=== PATIENT | female | born 1930 | race Caucasian/White ===

== ENCOUNTER 2017-01-05 13:00 | Inpatient (IN) | payer MEDICARE, OTHER ==
--- NOTE | ~2017-01-05 | HP ---
Unit #: [id number] #: [id number] Patient: RAKESH STEWART [id number] [address] [address] [id number] I MR#: [id number] NAME: RAKESH STEWART ROOM: 463 Age: 86 Sex: F Admission Date: 01/05/2017 : 1930 Attending Physician: Phil Loo M.D. Primary Care Physician: Michael Lama M.D. HISTORY AND PHYSICAL REASON FOR ADMISSION Right femur fracture. HISTORY OF PRESENT ILLNESS The patient is an 84-year-old long-term resident at [facility] with underlying past history of dementia likely mild to moderate with behavioral disturbances who apparently was trying to get out of her bed last night in the hospital. She fell awkwardly onto her right side. Portable x-ray was done at that time at the custodial which showed evidence of impossible fracture and, therefore, she was transferred to [facility] for further evaluation. Initial x-ray here also raised that possibility. The patient has already had a CT scan, which is currently pending, to ascertain the area in question for possible occult right femur fracture and/or possible underlying pelvic fracture as well. PAST MEDICAL HISTORY Spinal stenosis, chronic diarrhea, lactose intolerance, dysphagia, intractable back pain, GERD, depression, TIA, anemia, Alzheimer's dementia with behavioral disturbances, impaired cognition, restless leg, chronic pain, hyperlipidemia, insomnia, major depressive disorder, anxiety, overactive bladder, history of recurrent falls, chronic dysphagia. SOCIAL HISTORY Resides at a custodial. No alcohol use. No tobacco use. No illicit drug use. FAMILY HISTORY Reviewed, noncontributory, nonpertinent. ALLERGIES Codeine, erythromycin, Feldene, sulfa, iodine. CURRENT MEDICATIONS 1. Coumadin. 2. Omeprazole. 3. Remeron. 4. Ditropan. 5. Paxil. 6. Aricept. 7. Zyrtec. 8. [place]. 9. Loperamide. 10. Milk of magnesia. Unit #: [id number] #: [id number] Patient: RAKESH STEWART 11. Zofran. 12. Trazodone. 13. Zyrtec. 14. Aspercreme. 15. Barrier creams as directed. REVIEW OF SYSTEMS Please see HPI. Limited secondary to patient's current chronic conditions. PHYSICAL EXAMINATION GENERAL APPEARANCE: An 84-year-old female in no acute distress. VITAL SIGNS: Temperature 98.7. Pulse 83. Respiratory rate 20. Blood pressure 112/90. HEENT: Head exam: Atraumatic. Ear exam: Tympanic membranes do not reveal any erythema or injection. NECK: Supple. CARDIOVASCULAR: S1, S2 without murmur. RESPIRATORY: Coarse breath sounds noted. GASTROINTESTINAL/ABDOMEN: Nontender, nondistended. LOWER EXTREMITIES: Contracted stated, decreased range of motion secondary to discomfort and/or pain. NEUROLOGIC: Patient alert and oriented times zero. DIAGNOSTIC STUDIES LABORATORY: BMP showing a potassium of 3.1, creatinine 0.7. INR 1.2. CBC: Hemoglobin 11.5, WBC count 13.1. IMAGING: X-ray performed at outside facility showing acute supracondylar femur fracture with knee arthroplasty remaining intact. INITIAL ADMISSION DIAGNOSES 1. Right femur fracture. 2. Status post fall. 3. Behavioral disturbance secondary to mild to moderate dementia. 4. Alzheimer dementia. 5. Chronic pain syndrome. 6. Intractable back pain. 7. Neuropathy. 8. GERD. 9. Chronic anticoagulation with Coumadin, I believe, secondary to TIA history. 10. Anxiety/depression. PLAN Admission med/surg floor. 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 She will also be taken off of some of her sedative medications including Neurontin as well as Fentanyl and will be converted into short-acting pain medications. Miscellaneous medications including Zyrtec and others will also be discontinued. We will try to minimize her overall medication list, as certainly polypharmacy may be contributing to some of her symptoms. Plans have been reviewed with the patient's daughter who was present at bedside. Orthopaedic Services have been consulted. CT scan is currently pending. Further plans and/or disposition per Orthopaedic Services, may require Unit #: [id number] #: [id number] Patient: RAKESH STEWART intraoperative management to which we will continue to follow both preoperative as well as postoperatively. Plans have been reviewed with patient's daughter. Overall, long-term prognosis of this patient currently is guarded. Dictated by Donald Magallanes/mark anthony TD: 01/06/2017 19:13 JOB #: [id number] HISTORY AND PHYSICAL Page 1 of 1 X Phil Loo MD X HISTORY AND PHYSICAL
--- NOTE | ~2017-01-05 | CR71 ---
[facility] A Service of [facility] & [facility] RADIOLOGY TEXT RESULTS PATIENT: RAKESH STEWART LOCATION: [place] [address] : [birth year] UNIT #: [id number] AGE: [address]: Phil Loo MD SEX: F ORDER DR: [id number] [facility] [address] [place], [place] [address] [id number] I MR#: [id number] Acc #: [id number] NAME: RAKESH STEWART : 1930 SEX: F STUDY DATE/TIME: 01/05/2017 12:45 UNIT: CEDOF ROOM: 76874 STUDY DESCRIPTION: CR Chest Single View Attending Physician: Phil Loo M.D. Ordering Physician: Ed Carl Ramey M.D. Primary Care Physician: Michael Lama M.D. MEDICAL IMAGING REPORT This report is preliminary unless electronic signature is present EXAM Chest x-ray. DATE OF EXAM 01/05/2017 at 12:45. INDICATIONS Shortness of air since last night after a fall. FINDINGS AP portable chest is compared with 12/01/2008. There is elevation of the right hemidiaphragm with some right base atelectasis. Heart size normal. The lungs are otherwise clear, and there is no pneumothorax. There are old-appearing left posterior rib fractures. IMPRESSION Interval development of an elevated right hemidiaphragm with some mild right base atelectasis. No other evidence for active disease. Dictated by... Alfie Conde Jr., M.D. THIS IS AN ELECTRONICALLY VERIFIED REPORT Alfie Conde Jr., M.D. at 01/08/2017 8:00 AM CARLOS/melanie TD: 01/05/2017 15:40 JOB #: [id number] MEDICAL IMAGING REPORT Page 1 of 1 COPY
--- NOTE | ~2017-01-05 | CR151 ---
[facility] A Service of [facility] & [facility] RADIOLOGY TEXT RESULTS PATIENT: RAKESH STEWART LOCATION: [facility] 463-01 : [birth year] UNIT #: [id number] AGE: [address]: Phil Loo MD SEX: F ORDER DR: [id number] [facility] [address] [place], [place] [address] [id number] I MR#: [id number] Acc #: [id number] NAME: RAKESH STEWART : 1930 SEX: F STUDY DATE/TIME: 01/05/2017 12:48 UNIT: [facility] ROOM: [facility] STUDY DESCRIPTION: CR Hip Min 2 Views Rt Attending Physician: Phil Loo M.D. Ordering Physician: Ed Carl Ramey M.D. Primary Care Physician: Michael Lama M.D. MEDICAL IMAGING REPORT This report is preliminary unless electronic signature is present EXAM Right hip and pelvis. DATE OF EXAM 01/05/2017 at 1248 hours. INDICATIONS Right hip pain after fall last night. FINDINGS AP pelvis was obtained in addition to a frog-leg views of the right hip. Patient is osteopenic. There is degenerative disease in the lower lumbar spine. There is some osteoarthritic joint space narrowing in the hips. No fracture or malalignment is identified however. IMPRESSION Osteopenia and degenerative disease. No acute fracture or malalignment in the pelvis or right hip. Dictated by... Alfie Conde Jr., M.D. THIS IS AN ELECTRONICALLY VERIFIED REPORT Alfie Conde Jr., M.D. at 01/08/2017 8:00 AM CARLOS/melanie TD: 01/05/2017 15:54 JOB #: [id number] MEDICAL IMAGING REPORT Page 1 of 1 COPY
--- NOTE | ~2017-01-05 | OR ---
Unit #: [id number] #: [id number] Patient: RAKESH STEWART [id number] [address] [address] [id number] I MR#: [id number] NAME: RAKESH STEWART ROOM: 463 Date of Procedure: 01/06/2017 Admission Date: 01/05/2017 Surgeon: Henry Lozano M.D. : 1930 Attending Physician: Phil Loo M.D. Primary Care Physician: Michael Lama M.D. OPERATIVE REPORT PREOPERATIVE DIAGNOSIS Right closed distal femur periprosthetic fracture. POSTOPERATIVE DIAGNOSIS Right closed distal femur periprosthetic fracture. PROCEDURE PERFORMED Open reduction and internal fixation, right distal femur periprosthetic fracture. 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 ANESTHESIA General with LMA. COMPLICATIONS None. SPECIMENS None. DRAINS None. SURGICAL IMPLANTS Harleen distal femur locking plate. INDICATION FOR PROCEDURE Ms. Stewart is an 86-year-old female with dementia, who was at a fpc, who apparently fell onto her right knee resulting in a closed displaced periprosthetic distal femur fracture. She apparently had a right total knee arthroplasty performed roughly 15 years ago. Based on the type of fracture, limited mobility, and the patient's pain, it was felt she would benefit from stabilization of fracture. Risks, benefits, and alternatives of surgery were discussed with the patient's family. Informed consent was obtained. They wished to proceed with this procedure to aid immobilization and reduced pain. Risks include, but not limited to, infection, bleeding, nerve injury, blood clots, risks associated with anesthesia, need for further surgery, and possibly . DESCRIPTION OF PROCEDURE Unit #: [id number] #: [id number] Patient: RAKESH STEWART On 01/06/2017, the patient was seen in preoperative holding area, where her surgical site was marked. Preoperative antibiotics were received. H and P and consent updated. The patient was taken to the operating room and provided general anesthesia. Right lower extremity was prepped and draped in typical sterile fashion. Time-out performed confirming the correct surgical site and procedure. At this point, the right leg was placed on a radiolucent triangle. A longitudinal lateral incision was made over the distal femur. Incision was taken down through the skin and subcutaneous tissues. IT band was split in line with the femur. The vastus lateralis was elevated off the posterior septum. Fracture site identified. It was significantly extended. The distal portion was comminuted and the bone was extremely thin. The extension was neutralized and K-wires were placed to hold it in position. The plate was placed and K-wire in place. The plate was checked on both AP and lateral planes noted to be in appropriate position distally. Screws were then placed locking plate to the distal segment. Next, the plate and the distal segment reduced the shaft by placing 4 bicortical screws in the shaft. Locking caps were placed in all of the screw holes to prevent cut out. At this point, final AP and lateral fluoroscopic images were taken confirming appropriate reduction of fracture and placement of hardware. The knee had full extension and flexion. The wound was then thoroughly irrigated. Hemostasis noted. IT band was closed with 0 Vicryl suture followed by 2-0 Vicryl for subcutaneous tissues and oscar for skin. Xeroform, 4x4s, ABD pad, cast padding, and Werner bandage were placed followed by a knee immobilizer. The patient was subsequently awakened from general anesthesia in stable condition and taken to PACU postoperatively. POSTOPERATIVE PLAN The patient will be returned to her hospital room. She will be nonweightbearing on the right lower extremity and help for transfers only. She will be on Lovenox for approximately 10 days for DVT prophylaxis and have SCDs. She will be on standard 24-hour antibiotic protocol. No complications were encountered during the surgical procedure. Dictated by... Donald El/rosenda TD: 01/07/2017 00:42 JOB #: [id number] OPERATIVE REPORT Page 1 of 1 X X PROCEDURE OPERATIVE NOTE
--- NOTE | ~2017-01-05 | CR170 ---
[facility] A Service [facility] RADIOLOGY TEXT RESULTS PATIENT: RAKESH STEWART LOCATION: [place] [address] : [birth year] UNIT #: [id number] AGE: [address]: Phil Loo MD SEX: F ORDER DR: [id number] [facility] [address] [facility] [place], [place] [address] [id number] I MR#: [id number] Acc #: [id number] NAME: RAKESH STEWART : 1930 SEX: F STUDY DATE/TIME: 01/06/2017 12:14 UNIT: [facility] ROOM: [facility] STUDY DESCRIPTION: CR Knee 2 Views Rt Attending Physician: Phil Loo M.D. Ordering Physician: Henry Lozano M.D. Primary Care Physician: Michael Lama M.D. MEDICAL IMAGING REPORT This report is preliminary unless electronic signature is present EXAM Right knee series INDICATIONS Intraoperative fluoroscopy for right knee surgery. TECHNIQUE Intraoperative fluoroscopy. Total fluoro time 2.5 minutes. 3 images are submitted. COMPARISON 01/05/2017. FINDINGS There has been side plate and screw fixation of the distal femoral fracture. The fracture still remains displaced, similar to the previous study. IMPRESSION Interval placement of side plate and screws along the distal femur. The component obscured by the right knee prosthesis is not well evaluated but the component of the fracture in the metaphysis remains displaced, similar to the prior. Dictated by... Antonio Mercedes M.D. THIS IS AN ELECTRONICALLY VERIFIED REPORT Antonio Mercedes M.D. at 01/07/2017 9:43 AM EED/pcl [facility] A Service [facility] RADIOLOGY TEXT RESULTS PATIENT: RAKESH STEWART LOCATION: [place] [address] : [birth year] UNIT #: [id number] AGE: [address]: Phil Loo MD SEX: F ORDER DR: TD: 01/06/2017 15:42 JOB #: [id number] MEDICAL IMAGING REPORT Page 1 of 1 COPY
--- NOTE | ~2017-01-05 | A ---
[facility] Nutrition Therapy DATE: 01/07/17 Patient: RAKESH Zac STEWART Physician: JAYCOB Address: [address] [place] [address] Room/Bed: [address] [place] [address], Zip: [place] [phone] Admit Date: 01/05/17 Date of : [birth year] Height: 5 8 Weight: 110 50 NUTRITIONAL ASSESSMENT: REASON: Consult and low BMI 86 yo female admitted for R femur fracture PMH: Spinal stenosis, chronic diarrhea, lactose intolerance, dysphagia, GERD, depression, dementia with behavioral disturbances, TIA, anxiety, HLD Anthropometrics: Ht: 5'8" Wt: 54.5 kg (120#) BMI: 18.3 IBW: 140#, 86% IBW Labs: BUN 28, Ca++ 8.0, GFR 40.3 Meds: K, Lipitor, Remeron, NaCl, Zofran, Lactaid I/O & Bowel function: 1745/475, last BM unknown Skin Integrity: Bruises (scattered) scar (abd), closed surgical incision (R hip), no edema noted Estimated Nutrition Needs: Increased d/t low BMI Assessment: Chart reviewed, events noted. Pt lives at residential and fell, resulting in a femur fracture. Pt underwent surgery yesterday (01/06). Per INSPECTOR REPAIRER SANDSTONE eval, pt on a pureed and thin liquid diet. Pt also has no added salt restriction. Pt was asleep and not appropriate for diet interview. RD collector of internal revenue talked to sitter in room. Per sitter, pt consumes ~50% of meals and thinks supplements would benefit pt. See recommendations below. Dx: Underweight RT poor intake AEB consuming ~50% of meals, 18.3 BMI, 86% IBW. Intervention: 1. Ensure TID 2. Pureed diet Monitoring, Evaluation and Goals: 1. PO intake; consume >75% of meals and supplements 2. Weight; prevent unintentional weight loss, promote gradual weight gain 3. Labs; WNL Recommendations: 1. Please order Ensure shakes TID w/ meals. [facility] Nutrition Therapy DATE: 01/07/17 Patient: RAKESH STEWART Physician: JAYCOB Address: [address] [place] [address] Room/Bed: [address] [place] [address], Zip: [place] [address] Admit Date: 01/05/17 Date of : [birth year] Height: 5 8 Weight: 110 50 2. If pt is consuming <50% of meals, consider d/c no salt added restriction. Pt is at a mild nutritional risk. RD will f/u per protocol. Respectfully, Divina Hurtado, End User Consultant Mackenzie Soler RD, LD Christal Rizzo MS, RD, LD [facility] Nutrition[facility] cc: client file
--- NOTE | ~2017-01-05 | EKG ---
PATIENT: RAKESH STEWART UNIT #: [id number] Ventricular Rate: 93 BPM Atrial Rate: 93 BPM P-R Interval: 134 ms QRS Duration: 108 ms Q-T Interval: 388 ms QTC Calculation(Bezet): 482 ms P Buchanan: 67 degrees Calculated R Buchanan: -32 degrees Calculated T Buchanan: 66 degrees Diagnosis Line: Normal sinus rhythm Diagnosis Line: Left axis deviation Diagnosis Line: Septal infarct , age undetermined Diagnosis Line: ST depression, consider subendocardial injury Diagnosis Line: Abnormal ECG Diagnosis Line: No previous ECGs available Diagnosis Line: Confirmed by MURRAY KAUFMAN MD ([id number]) on 01/05/2017 Diagnosis Line: 6:40:55 PM INTERPRETING MD: MANDEEP BRANNON
--- NOTE | ~2017-01-05 | DS ---
Unit #: [id number] #: [id number] Patient: RAKESH STEWART [id number] [address] [place], [place] [address] [id number] I MR#: [id number] NAME: RAKESH STEWART ROOM: 463 Age: 86 Sex: F Admission Date: 01/05/2017 : 1930 Discharge Date: 01/10/2017 Attending Physician: Phil Loo M.D. Primary Care Physician: Michael Lama M.D. DISCHARGE SUMMARY REASON FOR ADMISSION Status post fall in group home with resultant right distal femur fracture. HISTORY OF PRESENT ILLNESS/HOSPITAL COURSE Please see H and P for complete details. Initial part of hospital stay consistent with consultation being placed to orthopedic services. Patient underwent on January 06, 2017, performed by Dr. Lozano, an open reduction internal fixation of the right distal femur periprosthetic fracture. Postoperatively, there were no acute events. However, patient's hemoglobin did decrease to 6.7 from a baseline, I believe, closer to 9-10. She received 2 units of packed red blood cells. Her Lovenox was later discontinued. She was cared for by physical and occupational therapy. At the present time, she appears stable for transfer to a rehab facility and then with plans for back to long-term nursing care. At time of discharge, we are awaiting orthopedic recommendations but for now will place her on aspirin 325 mg x12 additional days for a total of two weeks. It was noted that the patient was on Coumadin prior to admission, was not entirely sure what the diagnosis for the Coumadin was for. I did approach the daughter, asked her, and discuss with her. She was not sure either. The patient did appear to be in normal sinus throughout her hospital course. Therefore, at time of discharge will discontinue her Coumadin altogether. Her [place] dosage has also been decreased to one tablet p.o. b.i.d. Her Duragesic patch will be continued. FINAL DIAGNOSES 1. Status post mechanical fall in group home with resultant right distal femur fracture. 2. Spinal stenosis. 3. Chronic diarrhea. 4. Lactose intolerance. 5. Chronic dysphagia, cleared by speech therapy this hospital admission. 6. Intractable back pain. 7. Gastroesophageal reflux disease. 8. Depression. 9. Transient ischemic attack history. 10. Anemia. 11. Alzheimer dementia. Unit #: [id number] #: [id number] Patient: RAKESH STEWART 12. Behavioral disturbance. 13. Impaired cognition. 14. Restless leg syndrome. 15. Chronic pain syndrome. 16. Hyperlipidemia. 17. Insomnia. 18. Major depressive disorder. 19. Anxiety. 20. Overactive bladder. 21. History of recurrent falls. 22. Failure to thrive. DISCHARGE MEDICATIONS 1. Zofran 4 mg p.o. q.4 p.r.n. 2. Maalox 30 mL p.o. b.i.d. p.r.n. 3. Flonase one to two squirts each nostril daily. 4. Depakote 250 mg p.o. q.6. 5. Remeron 15 mg p.o. nightly. 6. Paxil 10 mg p.o. daily. 7. Trazodone 25 mg p.o. nightly p.r.n. 8. Requip 0.25 mg p.o. nightly. 9. Milk of Magnesium 30 mL p.o. daily p.r.n. 10. Aricept 10 mg p.o. nightly. 11. Lactase probiotic daily. 12. Ditropan 5 mg p.o. nightly. 13. Pravachol 20 mg p.o. nightly. 14. Multivitamin daily. 15. Aspirin 325 mg p.o. daily x12 days. 16. Duragesic 75 mcg q.72 hours. 17. [place] 5/325 one tablet p.o. b.i.d. p.r.n. 18. Omeprazole 20 mg p.o. daily. 19. Klor-Con 10 mEq p.o. b.i.d. DISCHARGE CONDITION Stable. DISCHARGE DISPOSITION To rehab. Dictated by... Donald Magallanes TD: 01/10/2017 10:33 JOB #: [id number] Unit #: [id number] #: [id number] Patient: RAKESH STEWART DISCHARGE SUMMARY Page 1 of 1 X Phil Loo MD DISCHARGE SUMMARY
--- NOTE | ~2017-01-05 | CR173 ---
[facility] A Service of [facility] RADIOLOGY TEXT RESULTS PATIENT: RAKESH STEWART LOCATION: [facility] [place] [facility] 463-01 : [birth year] UNIT #: [id number] AGE: [address]: Phil Loo MD SEX: F ORDER DR: [id number] [facility] [address] [place], [place] [address] [id number] I MR#: [id number] Acc #: [id number] NAME: RAKESH STEWART. : 1930 SEX: F STUDY DATE/TIME: 01/05/2017 UNIT: [facility] [place] [facility] ROOM: [facility] STUDY DESCRIPTION: CR Knee 3 Views Rt Attending Physician: Phil Loo M.D. Ordering Physician: Ed Doctor [id number] [facility] Primary Care Physician: Michael Lama M.D. MEDICAL IMAGING REPORT This report is preliminary unless electronic signature is present EXAM Right knee 01/05 at 12:51 INDICATIONS Knee pain after a fall last night. FINDINGS 2 views of the right knee were obtained. Patient is status post total knee arthroplasty. There is a comminuted fracture of the distal femur involving the diaphysis and metaphysis, extending probably into the condyle. There is a lipohemarthrosis. The tibial plateau appears intact. IMPRESSION Comminuted distal femur fracture, as above, which extends behind the hardware. Patient is osteopenic. Dictated by... Alfie Conde Jr., M.D. THIS IS AN ELECTRONICALLY VERIFIED REPORT Alfie Conde Jr., M.D. at 01/08/2017 8:00 AM CARLOS/unique TD: 01/05/2017 15:52 JOB #: [id number] MEDICAL IMAGING REPORT Page 1 of 1 COPY
--- NOTE | ~2017-01-05 | CT71 ---
[facility] A Service of [facility] RADIOLOGY TEXT RESULTS PATIENT: RAKESH STEWART LOCATION: [place] [address] : [birth year] UNIT #: [id number] AGE: [address]: Phil Loo MD SEX: F ORDER DR: [id number] [facility] [address] [facility]. [place], [place] [address] [id number] I MR#: [id number] Acc #: [id number] NAME: RAKESH STEWART : 1930 SEX: F STUDY DATE/TIME: 01/05/2017 17:04 UNIT: [facility] ROOM: [facility] STUDY DESCRIPTION: CT Head Wo Contrast Attending Physician: Phil Loo M.D. Ordering Physician: Bear Ramey M.D. Primary Care Physician: Michael Lama M.D. MEDICAL IMAGING REPORT This report is preliminary unless electronic signature is present EXAM Noncontrast head CT. HISTORY Fell at longterm last night. States hit back of head, head pain. COMPARISON Head CT, 07/05/2010. TECHNIQUE NOTE: This CT exam was performed with one or more of the following radiation dose reduction techniques: automatic exposure control, adjustment of mA and/or kV according to patient size, and iterative reconstruction. FINDINGS Axial noncontrast imaging of the brain demonstrates generalized atrophy. There is decreased attenuation of the periventricular white matter most prominent overlying the anterior frontal regions most likely related to chronic microvascular disease. No mass, mass effect or midline shift. No hemorrhage or abnormal extraaxial fluid collections. Intracranial vascular calcifications noted. Skull base, mastoids and sinuses unremarkable. IMPRESSION No acute intracranial abnormality identified. Generalized atrophy with chronic microvascular ischemic changes. Dictated by.Tash. Tony Dumont M.D. THIS IS AN ELECTRONICALLY VERIFIED REPORT [facility] A Service of [facility] RADIOLOGY TEXT RESULTS PATIENT: RAKESH STEWART LOCATION: [place] [address] : [birth year] UNIT #: [id number] AGE: [address]: Phil Loo MD SEX: F ORDER DR: Tony Dumont M.D. at 01/05/2017 8:37 PM Jameson TD: 01/05/2017 20:06 JOB #: [id number] MEDICAL IMAGING REPORT Page 1 of 1 COPY
--- NOTE | ~2017-01-05 | CO ---
Unit #: [id number] #: [id number] Patient: BAILEY STEWART [id number] [address] [address] [id number] MR#: [id number] NAME: BAILEY STEWART ROOM: 463 Age: 86 Sex: F Admission Date: 01/05/2017 : 1930 Attending Physician: Phil Loo M.D. Primary Care Physician: Michael Lama M.D. Consultation Date: 01/06/2017 CONSULTATION REPORT REASON FOR CONSULTATION Right distal femur periprosthetic fracture. HISTORY OF PRESENT ILLNESS Bailey is an 86-year-old female with dementia who lives in a shelter. The patient apparently fell onto her right knee resulting in deformity and pain. She was brought to the emergency room where x-rays were taken. She was noted to have a comminuted distal femur fracture above her total knee arthroplasty. The patient was admitted to the Medical Service. She was noted to have pain in the knee. On exam today, she does have severe dementia. She does appear to have pain with motion of the leg. It does appear to be better with rest per her family. No significant prior problems with the knee other than the knee replacement. She does predominantly use a wheelchair to get around at the shelter. PAST MEDICAL HISTORY 1. History of heart failure. 2. Diffuse osteoarthritis. 3. Spinal stenosis. 4. Dementia. 5. Chronic pain. 6. Anxiety. PAST SURGICAL HISTORY 1. Gallbladder removal. 2. D and C. 3. Hysterectomy. 4. Laminectomy. 5. Bladder repair. 6. Bladder fulguration. 7. Sinus surgery. 8. Breast biopsy. 9. Appendectomy. 10. Cataract surgery. 11. Temporal artery biopsy. 12. Right total knee arthroplasty. SOCIAL HISTORY The patient lives in a shelter for the last three years. Her is . She has two children with her at the bedside today. No tobacco, alcohol or drug use. FAMILY HISTORY Noncontributory. Unit #: [id number] #: [id number] Patient: BAILEY STEWART ALLERGIES Sulfa, iodine and IV contrast. MEDICATIONS 1. Flonase. 2. Klor-Con. 3. Ativan. 4. Requip. 5. Lipitor. 6. Aricept. 7. Paxil. 8. Ditropan. 9. Remeron. 10. Lactaid. 11. Depakote. 12. Corrales. 13. Fentanyl patch. 14. Ativan. REVIEW OF SYSTEMS Unable to obtain due to patient not being alert or oriented. PHYSICAL EXAMINATION GENERAL APPEARANCE: The patient is in no acute distress. She is not alert or oriented or exam. VITAL SIGNS: Temperature 97.9 degrees Fahrenheit. Pulse 93. Respiratory rate 18. 97% oxygen saturation. Blood pressure 112/54. HEENT: Head is atraumatic, normocephalic. Extraocular movements intact. Mucous membranes are slightly dry. CERVICAL SPINE: Slightly kyphotic but she freely moves. No appreciable JVD. LUNGS: Breathing nonlabored. Chest rise symmetric. PULSE: Regular rate and rhythm. ABDOMEN: Soft, nontender, nondistended. EXTREMITIES: No clubbing, cyanosis or edema of the extremities. All extremities are warm and well perfused. A focused examination of the right lower extremity reveals knee immobilizer in place. There is some ecchymosis about the knee. There is tenderness to palpation. Limited motion of the right leg. Compartments are soft. SKIN: No appreciable skin lesions. DIAGNOSTIC STUDIES LABORATORY: BMP normal with glucose of 141. INR 1.2. WBC count 11.2, hemoglobin 10.8, platelets 234. IMAGING: X-rays reviewed of the right knee reveal a periprosthetic distal femur fracture above the knee arthroplasty. There is osteopenia noted. The implant appears to be not loose. IMPRESSION An 86-year-old female with dementia and a displaced right distal periprosthetic femur fracture. PLAN I had a long discussion with the patient's children regarding options to help with mobility and aid in pain control. The family elected to proceed with surgical stabilization of the fracture. We will plan for ORIF of the Unit #: [id number] #: [id number] Patient: BAILEY STEWART distal femur. Risks, benefits and alternatives discussed. Informed consent was obtained. Risks include but not limited to infection, bleeding, nerve injury, blood clot, risks associated with anesthesia, need for further surgery and possibly . All their questions were answered. We will proceed with surgery. Dictated by... Henry Lozano M.D. FELI/feli TD: 01/06/2017 12:41 JOB #: [id number] CONSULTATION REPORT Page 1 of 1 X X CONSULTATION REPORT
[2017-01-05 12:49] LABS: BASOPHIL% 0.2 % (0-2.5); EOSINOPHIL% 0.1 % (0.0-7.0); HEMATOCRIT 35.3 % (35.0-45.0); HEMOGLOBIN 11.5 gm/dL (12.0-16.0); LYMPHOCYTE% 7.3 % (17.0-45.0); MEAN CELL VOLUME 90.1 FL (83-96); MEAN CORPUSCULAR HEMOGLOBIN 29.3 PG (28-34); MEAN CORPUSCULAR HGB CONC 32.5 g/dL (30-36); MEAN PLATELET VOLUME 8.8 FL (6.5-11.5); MONOCYTE# 0.9 X10e3 (0-1.0); MONOCYTE% 6.9 % (3.0-12.0); NEUTROPHIL# 11.3 X10e3 (1.5-7.1); NEUTROPHIL% 85.5 % (40-75); PLATELET COUNT 245 X10e3 (140-420); RED BLOOD COUNT 3.91 X10e (3.90-5.30); RED CELL DISTRIBUTION WIDTH 14.6 % (11.0-15.5); WHITE BLOOD COUNT 13.1 X10e3 (4.0-10.5)
[2017-01-05 12:53] LABS: DIFF IND NO
[~2017-01-05 13:00] MED LIST: ALTACE PO; AMITRYPTYLINE PO; ARICEPT5 MG PO; BACLOFEN10 MG PO; ELMIRON100 MG PO; FEMHRT 0.5 MG/21 TAB PO; IBUPROFEN PO; KCL PO; LASIX PO; LOMOTIL TABLET1 TAB PO; NEURONTIN PO; NIFEREX-150 FOR1 CAP PO; NORCO 10/325 TA1 TAB PO; NORVASC PO; OCUVITE TABLET1 TAB PO; PAXIL PO; PLAVIX PO; PRAVACHOL PO; PRILOSEC PO; REQUIP1 MG PO; SKELAXIN PO
[2017-01-05 13:08] LABS: INR 1.2; PARTIAL THROMBOPLASTIN TIME 23.4 SECONDS (23.5-31.3); PROTHROMBIN TIME (PATIENT) 12.7 SECONDS (9.6-11.5)
[2017-01-05 13:19] LABS: BUN/CREATININE RATIO 17.14; CALCIUM SERUM 9.3 mg/dL (8.4-10.2); CREATININE SERUM 0.7 mg/dL (0.6-1.4); GLOM FILT RATE Estimated 77.4 mL/min (>60); POTASSIUM 3.1 mmol/L (3.5-5.1)
[2017-01-05] MEDS ORDERED: DAIRY DIGES3000 UNI1 PO (16:24)
[2017-01-05] MEDS ORDERED: DIVALPROEX SOD250 MG PO (16:25)
[2017-01-05] MEDS ORDERED: [UNRECOGNIZED DRUG - OTHER] PO (16:26)
[2017-01-05] MEDS ORDERED: FLONASE 0.05% N16 G1 (16:26)
[2017-01-05] MEDS ORDERED: MULTI-DAY PLUS1 EACH PO (16:27)
[2017-01-05] MEDS ORDERED: GABAPENTIN300 M2 PO (16:28)
[2017-01-05] MEDS ORDERED: BUMEX1 MG PO (16:28)
[2017-01-05] MEDS ORDERED: HYDROCODON-ACE1 EAC7 PO (16:29)
[2017-01-05] MEDS ORDERED: KLOR-CON SPRIN10 MEQ PO (16:29)
[2017-01-05] MEDS ORDERED: REFRESH CLASSI1 EACH OU (16:30)
[2017-01-05] MEDS ORDERED: JANTOVEN2 MG PO (16:30)
[2017-01-05] MEDS ORDERED: WARFARIN SODIUM6 M1 PO (16:31)
[2017-01-05] MEDS ORDERED: REMERON15 MG PO (16:31)
[2017-01-05] MEDS ORDERED: OMEPRAZOLE20 M2 PO (16:31)
[2017-01-05] MEDS ORDERED: DONEPEZIL HCL10 MG PO (16:32)
[2017-01-05] MEDS ORDERED: PAROXETINE HCL10 MG PO (16:32)
[2017-01-05] MEDS ORDERED: DITROPAN5 MG PO (16:32)
[2017-01-05] MEDS ORDERED: PRAVACHOL20 MG PO (16:33)
[2017-01-05] MEDS ORDERED: ZYRTEC5 M2 PO (16:35)
[2017-01-05] MEDS ORDERED: CEPACOL SORE T1 EAC3 MM (16:35)
[2017-01-05] MEDS ORDERED: FENTANYL PATCH TD (16:35)
[2017-01-05] MEDS ORDERED: LORTAB 5-325 M1 EACH PO (16:39)
[2017-01-05] MEDS ORDERED: LOPERAMIDE HCL2 M1 PO (16:39)
[2017-01-05] MEDS ORDERED: ANTACID PLUS A PO (16:40)
[2017-01-05] MEDS ORDERED: MILK OF MAGNESIA PO (16:40)
[2017-01-05] MEDS ORDERED: ONDANSETRON ODT4 MG PO (16:42)
[2017-01-05] MEDS ORDERED: DESYREL50 MG PO (16:43)
[2017-01-05] MEDS ORDERED: AMMONIUM LAC TOP (16:45)
[2017-01-05] MEDS ORDERED: ASPERCREME 10% TOP (16:46)
[2017-01-05] MEDS ORDERED: REQUIP0.25 MG PO (16:53)
[2017-01-05 18:14] LABS: URINE SOURCE CLEAN CATCH
[2017-01-05 18:22] LABS: URINE APPEARANCE CLEAR; URINE BILIRUBIN NEG (NEG); URINE BLOOD NEG (NEG); URINE COLOR YELLOW; URINE GLUCOSE NEG (NEG); URINE KETONE 1+ (NEG); URINE LEUKOCYTE ESTERASE TRACE (NEG); URINE NITRATE NEG (NEG); URINE PH 5.5 (5-8); URINE PROTEIN NEG (NEG); URINE SPECIFIC GRAVITY 1.019 (1.003-1.035)
[2017-01-05 18:26] LABS: URBCS1 AUWI 0-2 /[HPF] (0-2); URINE BACTERIA AUWI NEG (NEGATIVE); URINE SQUAMOUS EPITHELIAL CELL NONE SEEN /[HPF]; UWBCS1 AUWI 0-2 (0-5)
[2017-01-05 18:39] LABS: CULTURE INDICATED? NO
[2017-01-06 02:18] LABS: HEMOGLOBIN 10.8 gm/dL (12.0-16.0); MEAN CELL VOLUME 90.8 FL (83-96); MEAN CORPUSCULAR HEMOGLOBIN 29.8 PG (28-34); MEAN CORPUSCULAR HGB CONC 32.8 g/dL (30-36); MEAN PLATELET VOLUME 9.3 FL (6.5-11.5); RED BLOOD COUNT 3.63 X10e (3.90-5.30); RED CELL DISTRIBUTION WIDTH 14.7 % (11.0-15.5); WHITE BLOOD COUNT 11.2 X10e3 (4.0-10.5)
[2017-01-06 02:44] LABS: INR 1.2; PROTHROMBIN TIME (PATIENT) 12.7 SECONDS (9.6-11.5)
[2017-01-06 02:48] LABS: CALCIUM SERUM 9.1 mg/dL (8.4-10.2); CREATININE SERUM 1.2 mg/dL (0.6-1.4); GLOM FILT RATE Estimated 40.3 mL/min (>60); MAGNESIUM 1.8 mg/dL (1.6-3.0); POTASSIUM 3.5 mmol/L (3.5-5.1)
[2017-01-07 03:58] LABS: BUN/CREATININE RATIO 23.33; CREATININE SERUM 1.2 mg/dL (0.6-1.4); GLOM FILT RATE Estimated 40.3 mL/min (>60); POTASSIUM 3.6 mmol/L (3.5-5.1)
[2017-01-07 07:34] LABS: HEMATOCRIT 23.7 % (35.0-45.0); MEAN CELL VOLUME 91.8 FL (83-96); MEAN CORPUSCULAR HEMOGLOBIN 29.9 PG (28-34); MEAN CORPUSCULAR HGB CONC 32.6 g/dL (30-36); MEAN PLATELET VOLUME 9.1 FL (6.5-11.5); RED BLOOD COUNT 2.59 X10e (3.90-5.30); RED CELL DISTRIBUTION WIDTH 14.8 % (11.0-15.5); WHITE BLOOD COUNT 13.8 X10e3 (4.0-10.5)
[2017-01-07 07:35] LABS: HEMOGLOBIN 7.7 gm/dL (12.0-16.0)
[2017-01-08 03:44] LABS: BASOPHIL% 0.3 % (0-2.5); EOSINOPHIL% 0.1 % (0.0-7.0); HEMATOCRIT 20.7 % (35.0-45.0); LYMPHOCYTE# 1.8 X10e3 (1.0-3.5); LYMPHOCYTE% 16.5 % (17.0-45.0); MEAN CELL VOLUME 92.4 FL (83-96); MEAN CORPUSCULAR HGB CONC 32.5 g/dL (30-36); MEAN PLATELET VOLUME 8.9 FL (6.5-11.5); MONOCYTE# 1.3 X10e3 (0-1.0); MONOCYTE% 11.7 % (3.0-12.0); NEUTROPHIL# 7.9 X10e3 (1.5-7.1); NEUTROPHIL% 71.4 % (40-75); PLATELET COUNT 183 X10e3 (140-420); RED BLOOD COUNT 2.24 X10e (3.90-5.30); RED CELL DISTRIBUTION WIDTH 15.1 % (11.0-15.5); WHITE BLOOD COUNT 11.1 X10e3 (4.0-10.5)
[2017-01-08 03:45] LABS: HEMOGLOBIN 6.7 gm/dL (12.0-16.0)
[2017-01-08 03:46] LABS: DIFF IND YES
[2017-01-08 03:59] LABS: BUN/CREATININE RATIO 38.57; CALCIUM SERUM 8.6 mg/dL (8.4-10.2); CREATININE SERUM 0.7 mg/dL (0.6-1.4); GLOM FILT RATE Estimated 77.4 mL/min (>60); POTASSIUM 4.4 mmol/L (3.5-5.1)
[2017-01-08 04:22] LABS: ANISOCYTOSIS SL; PLATELET ESTIMATE NORMAL (NORMAL)
[2017-01-08 04:23] LABS: MICROCYTOSIS SL; OVALOCYTES PRESENT
[2017-01-08 21:41] LABS: HEMATOCRIT 25.9 % (35.0-45.0); HEMOGLOBIN 8.5 gm/dL (12.0-16.0); MEAN CELL VOLUME 89.8 FL (83-96); MEAN CORPUSCULAR HEMOGLOBIN 29.6 PG (28-34); MEAN PLATELET VOLUME 8.7 FL (6.5-11.5); RED BLOOD COUNT 2.88 X10e (3.90-5.30); RED CELL DISTRIBUTION WIDTH 17.6 % (11.0-15.5); WHITE BLOOD COUNT 9.7 X10e3 (4.0-10.5)
[2017-01-09 03:28] LABS: HEMATOCRIT 27.4 % (35.0-45.0); MEAN CELL VOLUME 89.7 FL (83-96); MEAN CORPUSCULAR HEMOGLOBIN 29.5 PG (28-34); MEAN CORPUSCULAR HGB CONC 32.9 g/dL (30-36); MEAN PLATELET VOLUME 8.3 FL (6.5-11.5); RED BLOOD COUNT 3.06 X10e (3.90-5.30); RED CELL DISTRIBUTION WIDTH 17.3 % (11.0-15.5); WHITE BLOOD COUNT 10.7 X10e3 (4.0-10.5)
[2017-01-09 03:45] LABS: BUN/CREATININE RATIO 31.66; CALCIUM SERUM 8.6 mg/dL (8.4-10.2); CREATININE SERUM 0.6 mg/dL (0.6-1.4); GLOM FILT RATE Estimated 81.4 mL/min (>60); POTASSIUM 5.1 mmol/L (3.5-5.1)
[2017-01-10 04:06] LABS: HEMATOCRIT 28.7 % (35.0-45.0); HEMOGLOBIN 9.2 gm/dL (12.0-16.0); MEAN CELL VOLUME 91.9 FL (83-96); MEAN CORPUSCULAR HEMOGLOBIN 29.5 PG (28-34); MEAN CORPUSCULAR HGB CONC 32.1 g/dL (30-36); MEAN PLATELET VOLUME 8.2 FL (6.5-11.5); RED BLOOD COUNT 3.13 X10e (3.90-5.30); RED CELL DISTRIBUTION WIDTH 17.4 % (11.0-15.5); WHITE BLOOD COUNT 9.5 X10e3 (4.0-10.5)
[2017-01-10 04:10] LABS: CALCIUM SERUM 8.5 mg/dL (8.4-10.2); CREATININE SERUM 0.5 mg/dL (0.6-1.4); GLOM FILT RATE Estimated 86.4 mL/min (>60); POTASSIUM 4.7 mmol/L (3.5-5.1)
== END 2017-01-10 12:18 | DRG 481 ==
LOC: CED 13:00 → CEDOF 14:10 → C4C 15:53
PROVIDERS: Emergency Medicine; Family Medicine; Orthopaedic Surgery
PROC: 0QSB04Z Reposition Right Lower Femur with Internal Fixation Device, Open Approach (ICD-10-PCS; principal; 2017-01-06 11:00)
PROC: 30233N1 Transfusion of Nonautologous Red Blood Cells into Peripheral Vein, Percutaneous Approach (ICD-10-PCS; 2017-01-08)
DX: S72.401A Unspecified fracture of lower end of right femur, initial encounter for closed fracture (principal); M97.11XA Periprosthetic fracture around internal prosthetic right knee joint, initial encounter; G30.9 Alzheimer's disease, unspecified; F02.81 Dementia in other diseases classified elsewhere, unspecified severity, with behavioral disturbance; D64.9 Anemia, unspecified; Z68.1 Body mass index [BMI] 19.9 or less, adult; R63.6 Underweight; R62.7 Adult failure to thrive; W06.XXXA Fall from bed, initial encounter; Y92.122 Bedroom in nursing home as the place of occurrence of the external cause; M19.90 Unspecified osteoarthritis, unspecified site; M48.00 Spinal stenosis, site unspecified; Z96.651 Presence of right artificial knee joint; K52.9 Noninfective gastroenteritis and colitis, unspecified; E73.9 Lactose intolerance, unspecified; R13.10 Dysphagia, unspecified; M54.9 Dorsalgia, unspecified; K21.9 Gastro-esophageal reflux disease without esophagitis; F32.9 Major depressive disorder, single episode, unspecified; Z86.73 Personal history of transient ischemic attack (TIA), and cerebral infarction without residual deficits; G25.81 Restless legs syndrome; G89.4 Chronic pain syndrome; E78.5 Hyperlipidemia, unspecified; F41.9 Anxiety disorder, unspecified; N32.81 Overactive bladder; F11.21 Opioid dependence, in remission; Z66 Do not resuscitate; Z91.81 History of falling; Z79.01 Long term (current) use of anticoagulants; Z79.899 Other long term (current) drug therapy
CPT/HCPCS: 29505; 36415; 70450; 71010; 73502; 73560; 73562; 76001; 80048; 81003; 82607; 83735; 84443; 85025; 85027; 85610; 85730; 86850; 86900; 86901; 86923; 92526; 92610; 93005; 97163; 97530; 99285; C1713; C9113; G8978-GP; G8979-GP; G8996-GN; G8997-GN; G8998-GN; J0690; J1650; J2060; J2175; J2270; J2405; J3010; P9016